=== PATIENT | female | born 1985 | race Caucasian/White ===

== ENCOUNTER 2016-12-18 10:55 | Day surgery (SDC) | payer MEDICAID ==
[2016-12-18] MEDS ORDERED: LIDOCAINE 1% 2 ML INJ ONE (11:11)
[2016-12-18] MEDS ORDERED: LIDOCAINE 1% 2 ML INJ ID PRN (11:50)
[2016-12-18] MEDS ORDERED: LR 1,000 ML IV ONE (11:50)
--- NOTE | 2016-12-18 12:18 | PDGENHP ---
History & Physical Chief Complaint: hx of polyps History of Present Illness: 31 year old female with a personal hx of adenomatous polyps at age 23 presents for surveillance colonoscopy. Pertinent Past, Social, Family History: PMHx: anxiety. FmaHx: 2nd degree relative with CRC. No CRC in 1st degree Relevant Physical Exam: HEENT: Anicteric. CV: RRR +s1s2. Lungs: CTAB No w/r/ r. Abd: soft, nt, + BS. No guarding or rebound Cardiorespiratory Assessment: ASA 2. Mal 1
--- NOTE | 2016-12-18 13:03 | PDANEPAE ---
ANE History of Present Illness here for colonoscopy ANE Past Medical History - Cardiovascular History Hx Hypertension: No Hx Arrhythmias: No Hx Chest Pain: No Hx Coronary Artery / Peripheral Vascular Disease: No Hx CHF / Valvular Disease: No Hx Palpitations: No - Pulmonary History Hx COPD: No Hx Asthma/Reactive Airway Disease: No Hx Recent Upper Respiratory Infection: No Hx Oxygen in Use at Home: No Hx Sleep Apnea: No Sleep Apnea Screening Result - Last Documented: Negative - Neurologic History Hx Cerebrovascular Accident: No Hx Seizures: No Hx Dementia: No - Endocrine History Hx Diabetes: No - Renal History Hx Renal Disorders: No Renal History Comment: HX OVERACTIVE BLADDER - Liver History Hx Hepatic Disorders: No - Neurological & Psychiatric Hx Hx Neurological and Psychiatric Disorders: Yes Neurological / Psychiatric History Comment: ANXIETY - Cancer History Hx Cancer: No Cancer History Comment: PRECANCEROUS POLYP - Congenital Disorder History Hx Congenital Disorders: No - GI History GERD: no Hx Gastrointestinal Disorders: Yes Gastrointestinal History Comment: IBS - Other Health History Other Health History: NEG - Chronic Pain History Chronic Pain: No - Surgical History Prior Surgeries: COLONOSCOPY 4 YRS AGO W/POLYP REMOVAL ANE Review of Systems - Exercise capacity METS (RN): 4 METS ANE Patient History - Allergies Allergies/Adverse Reactions: cefaclor [From Ceclor] Allergy (Mild, Verified 12/15/16 16:51) Rash sulfamethoxazole [From Bactrim] Allergy (Mild, Verified 12/15/16 16:51) Rash trimethoprim [From Bactrim] Allergy (Mild, Verified 12/15/16 16:51) Rash - Home Medications Home medications: home medication list seen and reviewed Home Medications: Herbals/Supplements -Info Only 12/15/16 [Last Taken 12/13/16] Propranolol HCl 12/15/16 [Last Taken 12/16/16] Tylenol 12/15/16 [Last Taken 12/17/16] - NPO status NPO Status: no food or drink >8 hours NPO Since - Liquids (Date): 12/17/16 NPO Since - Liquids (Time): 02:00 NPO Since - Solids (Date): 12/17/16 NPO Since - Solids (Time): 09:00 - Anes Hx Anes Hx: no prior problems - Smoking Hx Smoking Status: Never smoked - Family Anes Hx Family Hx Anesthesia Complications: NEG ANE Labs/Vital Signs - Vital Signs Blood Pressure: 120/85 Heart Rate: 84 Respiratory Rate: 16 O2 Sat (%): 97 Height: 170.18 cm Weight: 61.689 kg ANE Physical Exam - Airway Neck exam: FROM Mallampati Score: Class 1 Mouth exam: normal dental/mouth exam - Pulmonary Pulmonary: no respiratory distress - Cardiovascular Cardiovascular: regular rate and rhythym - ASA Status ASA Status: II ANE Anesthesia Plan Anesthesia Plan: GA with mask Total IV Anesthesia: Yes
[2016-12-18] MEDS ORDERED: fentaNYL 100 MCG/2 ML INJ IVP PRN (13:04)
[2016-12-18] MEDS ORDERED: NALOXONE HCL 0.4 MG/ML INJ IVP PRN (13:04)
[2016-12-18] MEDS ORDERED: PROMETHAZINE HCL 25 MG/ML INJ IVP PRN (13:04)
[2016-12-18] MEDS ORDERED: ONDANSETRON 4 MG/2 ML VIAL IVP PRN (13:04)
[2016-12-18] MEDS ORDERED: HYDROmorphONE/DILAUDID 1 MG/ML SYR IVP PRN (13:04)
[2016-12-18] MEDS ORDERED: PROPOFOL/EMULSION 500 MG/50 ML BOTTLE IV ONE (13:17)
[2016-12-18] MEDS ORDERED: INDOMETHACIN 50 MG SUPP PR PRN (13:26)
[2016-12-18] MEDS ORDERED: NS 500 ML IV SCH (13:30)
[2016-12-18] MEDS ORDERED: PROPOFOL 200 MG/20 ML VIAL ONE ×2 (13:33→13:50)
--- NOTE | 2016-12-18 14:03 | POSTOPPROG ---
Post Op Note Date of Operation: 12/18/16 Surgeon: Arturo Gutierrez Anesthesia: IV Sedation Pre-op Diagnosis: hx of polyps Post-op Diagnosis: hf polyp, sigmoid lipima Indication: hx of polyps Procedure: colonoscopy with snare, bx Findings: sigmoid lip, hf polyp Inf/Abcess present in the surg proc area at time of surgery?: No EBL: Minimal
[2016-12-18 14:26] VITALS: RESP 16
[2016-12-18 14:28] VITALS: PULSE 96; TEMP 97.5
[2016-12-18 14:40] VITALS: BP 115/68; O2SAT 98
--- NOTE | 2016-12-18 14:40 | GPN ---
[f rep st] PROCEDURE NOTE DATE OF PROCEDURE: 12/18/2016 PROCEDURE: Colonoscopy with snare polypectomy, biopsy. INDICATION: The patient is a 31-year-old female with a history of adenomatous polyps who presents for surveillance colonoscopy. CONSENT: Risks, benefits, and alternatives of the procedure were discussed in great detail with the patient. Risks of infection, bleeding, perforation, and sedation were discussed. All questions answered and informed consent was obtained. MEDICATIONS: Propofol. Please see Anesthesia record for details. ESTIMATED BLOOD LOSS: Insignificant. COLONOSCOPIC EVALUATION: A rectal exam was done and no palpable masses felt. The Olympus adult colonoscope was introduced in the rectum and advanced to cecum , where the ileocecal valve and appendiceal orifice were seen. The quality of prep was good. In the hepatic flexure, a 3 mm sessile polyp was seen. It was removed by snare polypectomy but not retrieved. In the sigmoid colon, a 1 cm yellow, protruding lesion was seen. It appeared to be a lipoma. Biopsies were taken. IMPRESSION: 1. Hepatic flexure, status post snare polypectomy. Polyp resected but not retrieved. 2. Lipoma, status post biopsy. RECOMMENDATIONS: 1. Follow up on pathology. 2. Repeat colonoscopy in 5 years. /[id number]/MODL MTDD
== END 2016-12-18 14:42 | disposition home or self-care (01) ==
LOC: FSGY 10:55
PROVIDERS: ATTEND Internal Medicine Gastroenterology
PROC: 0DBN8ZX Excision of Sigmoid Colon, Via Natural or Artificial Opening Endoscopic, Diagnostic (ICD-10-PCS; principal; 2016-12-18 13:00)
DX: D12.5 Benign neoplasm of sigmoid colon (principal); Z86.010 Personal history of colon polyps; F41.8 Other specified anxiety disorders; K58.9 Irritable bowel syndrome, unspecified; Z80.0 Family history of malignant neoplasm of digestive organs
CPT/HCPCS: J2704